=== PATIENT | male | born 1955 | race Caucasian/White ===

== ENCOUNTER → 2017-07-07 | Outpatient (CLI) | payer MEDICARE, OTHER ==
[~2017-07-07] MED LIST: DICL100G18 TP; DOXA4TAB3 PO; HYDR-2762 PO; HYDR12.58 PO; MULT1TAB52 PO; TRIA15OI TP
--- NOTE | 2017-07-07 14:37 | EKG ---
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
--- NOTE | 2017-07-07 15:43 | RAD ---
Chest, 2 views, 07/07/2017: History: Preop evaluation for shoulder surgery The heart size and pulmonary vascularity are normal. There appears to be minimal parenchymal scarring. No acute infiltrate is seen. There is no evidence of pleural fluid. Moderate spurring is present in the spine. IMPRESSION: No acute cardiopulmonary abnormality is detected.
[2017-07-07 15:48] LABS: BASO % 1 % (0-3); EOS % 2 % (0-3); HEMATOCRIT 39.2 % (39.0-53.0); HEMOGLOBIN 13.5 g/dL (13.0-17.5); LYMPH # 1.8 x10^3/uL (1.0-4.8); LYMPH % 27 % (24-48); MEAN CORPUSCULAR HEMOGLOBIN 30 pg (25-35); MEAN CORPUSCULAR HGB CONC 34 g/dL (31-37); MEAN CORPUSCULAR VOLUME 87 fL (79-100); MONO % 6 % (0-9); NEUT % 64 % (31-73); PLATELET COUNT 138 x10^3/uL (140-400); RED BLOOD COUNT 4.51 x10^6/uL (4.30-5.70); RED CELL DISTRIBUTION WIDTH 13.5 % (11.5-14.5); WHITE BLOOD COUNT 6.7 x10^3/uL (4.0-11.0)
[2017-07-07 15:53] LABS: BILIRUBIN,URINE NEGATIVE (NEG); GLUCOSE,URINE NEGATIVE (NEG); NITRITE,URINE NEGATIVE (NEG); PH,URINE 5.5; PROTEIN,URINE NEGATIVE (NEG-TRACE)
[2017-07-07 15:58] LABS: INR 1.3 (0.8-1.1); PROTHROMBIN TIME PATIENT 15.1 SEC (11.7-14.0)
[2017-07-07 16:18] LABS: BACTERIA,URINE 0 /HPF (0-FEW); RBC,URINE 0 /HPF (0-2); SQUAMOUS EPITHELIAL CELL,UR OCC /LPF; WBC,URINE 0 /HPF (0-4)
[2017-07-07 16:24] LABS: CALCIUM 8.8 mg/dL (8.5-10.1); CREATININE 0.9 mg/dL (0.7-1.3); GFR 85.2; POTASSIUM 3.5 mmol/L (3.5-5.1)
== END | disposition home or self-care (01) ==
LOC: SURGPAT 13:42
PROVIDERS: ATTEND Orthopaedic Surgery Sports Medicine
DX: Z01.818 Encounter for other preprocedural examination (principal); M19.011 Primary osteoarthritis, right shoulder
CPT/HCPCS: 36415; 71020; 80048; 81001; 82040; 85025; 85610; 85651; 85730; 87641; 93005

== ENCOUNTER 2017-11-22 14:32 | Emergency (ER) | payer MEDICARE ==
[2017-11-22] MEDS: KETOROLAC 30 MG/ML INJ. IM (15:34)
== END 2017-11-22 16:55 | disposition home or self-care (01) ==
LOC: ER 14:32
DX: M25.511 Pain in right shoulder (principal); G89.29 Other chronic pain; I10 Essential (primary) hypertension; Z98.890 Other specified postprocedural states; Z88.6 Allergy status to analgesic agent; Z88.8 Allergy status to other drugs, medicaments and biological substances
CPT/HCPCS: 73030; 96372; 99284-25; J1885

== ENCOUNTER → 2019-04-01 | Outpatient (CLI) | payer MEDICARE ==
[2017-11-22 14:35] VITALS: BP 138/84
[~2019-04-01] MED LIST changes: -HYDR-2762 PO; +HYDR-2765 PO; +OXYC1TAB22 PO; +OXYC5CAP PO
== END | disposition home or self-care (01) ==
LOC: LAB 15:35
PROVIDERS: ATTEND Orthopaedic Surgery Sports Medicine
DX: Z96.611 Presence of right artificial shoulder joint (principal)
CPT/HCPCS: 36415; 85651; 86141

== ENCOUNTER → 2019-05-20 | Outpatient (CLI) | payer MEDICARE ==
[2017-11-22 14:35] VITALS: BP 138/84
[2019-05-20 16:46] LABS: BASO % 1 % (0-3); EOS # 0.3 x10^3/uL (0.0-0.7); EOS % 4 % (0-3); HEMATOCRIT 32.8 % (39.0-53.0); HEMOGLOBIN 11.3 g/dL (13.0-17.5); LYMPH # 1.7 x10^3/uL (1.0-4.8); LYMPH % 28 % (24-48); MEAN CORPUSCULAR HEMOGLOBIN 30 pg (25-35); MEAN CORPUSCULAR HGB CONC 34 g/dL (31-37); MEAN CORPUSCULAR VOLUME 88 fL (79-100); MONO # 0.5 x10^3/uL (0.0-1.1); MONO % 7 % (0-9); NEUT # 3.7 x10^3/uL (1.8-7.7); NEUT % 60 % (31-73); PLATELET COUNT 182 x10^3/uL (140-400); RED BLOOD COUNT 3.75 x10^6/uL (4.30-5.70); RED CELL DISTRIBUTION WIDTH 13.3 % (11.5-14.5); WHITE BLOOD COUNT 6.2 x10^3/uL (4.0-11.0)
[2019-05-20 17:39] LABS: ALBUMIN 3.5 g/dL (3.4-5.0); ALBUMIN/GLOBULIN RATIO 0.9 (1.0-1.7); CREATININE 0.9 mg/dL (0.7-1.3); GFR 84.7; POTASSIUM 4.7 mmol/L (3.5-5.1); TOTAL BILIRUBIN 0.4 mg/dL (0.2-1.0); TOTAL PROTEIN 7.5 g/dL (6.4-8.2)
[2019-05-21 02:07] LABS: CALCIUM PTH 9.2 mg/dL (8.6-10.2); CREATININE PTH 0.81 mg/dL (0.76-1.27); PHOSPHORUS PTH 3.2 mg/dL (2.5-4.5); PTH INTACT 44 pg/mL (15-65)
[2019-05-21 15:15] LABS: CERULOPLASMIN 26.9 mg/dL (16.0-31.0)
== END | disposition home or self-care (01) ==
LOC: LAB 16:01
PROVIDERS: ATTEND Psychiatry & Neurology Neurology
DX: G20 Parkinson's disease (principal); Z79.891 Long term (current) use of opiate analgesic
CPT/HCPCS: 36415; 80053; 82390; 82525; 83970; 84443; 85025